=== PATIENT | male | born 1960 | race Caucasian/White ===

== ENCOUNTER → 2017-05-12 11:37 | Outpatient (CLI) | payer OTHER ==
[2015-10-27 09:49] VITALS: BMI 33.7
[~2017-05-12 11:37] MED LIST: BENZTROPINE MESY1 MG PO; CARAFATE1 G PO; ESKALITH CR450 M1 PO; GABAPENTIN100 MG PO; GLUCOPHAGE500 MG PO; HALDOL5 MG PO; HYDROCODONE-APA1 TAB PO; LEVOTHYROXINE50 MCG PO; MODURETIC 5/501 TAB PO; MYSOLINE 50 MG50 MG PO; PROPRANOLOL HCL20 MG PO; PROTONIX40 MG PO; PROZAC20 MG PO; PROZAC40 MG PO; ROBAXIN-750750 MG PO; STIOLTO INH; VENTOLIN HFA18 GM INH
== END | disposition home or self-care (01) ==
LOC: D.RT 11:37
DX: J44.9 Chronic obstructive pulmonary disease, unspecified (principal)

== ENCOUNTER → 2017-07-24 12:32 | Outpatient (CLI) | payer OTHER ==
[2015-10-27 09:49] VITALS: BMI 33.7
[~2017-07-24 12:32] MED LIST changes: +ARICEPT5 MG PO; +BREO ELLIPTA 21 EACH; +IPRAT-ALBUT 0.5-3 ML UPD; +LATUDA40 MG PO; +RITALIN5 MG PO
== END | disposition home or self-care (01) ==
LOC: D.RT 12:32
DX: J44.9 Chronic obstructive pulmonary disease, unspecified (principal)

== ENCOUNTER 2017-08-11 09:04 | Day surgery (SDC) | payer OTHER ==
[~2017-08-11] VITALS: Ht 177.8 cm; Wt 113.6 kg
--- NOTE | ~2017-08-11 | HP ---
PATIENT: MIKE BUCKNER JR MEDICAL RECORD: [id number] ACCOUNT: [id number] LOCATION:[place] : 62 ADMISSION DATE: 08/11/17 HISTORY AND PHYSICAL EXAMINATION CHIEF COMPLAINT: Difficulty swallowing. HISTORY OF PRESENT ILLNESS: The patient has dysphagia at the level of the cricopharyngeus. He is here for EGD with esophageal dilation. HOME MEDICATIONS: Please see the nursing list. ALLERGIES: No known drug allergies. SOCIAL HISTORY: Former smoker. He quit 3 months ago. He wears oxygen at home. He has sleep apnea, he is not on CPAP. PAST MEDICAL AND SURGICAL HISTORY: COPD, hypertension, gastroesophageal reflux, and hypothyroidism. He has got some dementia. PHYSICAL EXAMINATION: GENERAL: The patient does not appear acutely ill. He does appear chronically ill. VITAL SIGNS: Reviewed. EARS: External ears appear normal. EYES: Extraocular movements are intact. NECK: Trachea is midline. CHEST: No intercostal retractions. PULMONARY: Mildly labored. No stridor. BACK: He does have some expiratory wheezes. IMPRESSION: Dysphagia. PLAN: EGD with esophageal dilation. TRANSINT:[id number] Voice Confirmation ID: [id number] DOCUMENT ID: [id number] KAIA JOSHI MD CC: BEBETO HEALY DO [id number] DICTATION DATE: 08/11/17 1116 TEST DEVELOPMENT ENGINEER: 08/11/17 1158 REG [facility] [address] [id number]
--- NOTE | ~2017-08-11 | OP ---
PATIENT NAME: MIKE BUCKNER JR MEDICAL RECORD: [id number] :62 LOCATION:D.OPS ADMISSION DATE: SURGEON: AVERY JOSHI MD DATE OF OPERATION: 08/11/2017 PREOPERATIVE DIAGNOSES: Dysphagia at the level of the cricopharyngeus. POSTOPERATIVE DIAGNOSES: 1. Dysphagia at the level of the cricopharyngeus. 2. Patterson esophagus, short segment. PROCEDURE: 1. Esophagogastroduodenoscopy with antral and distal esophageal biopsies. 2. Esophageal dilation with a through the catheter balloon to 60-Zambian. SURGEON: Avery Joshi MD PREPRESS SPECIALIST: None. BLOOD LOSS: Minimal. ANESTHESIA: IV sedation. COMPLICATIONS: None. The risks, possible complications and alternatives to procedure were explained to the patient. A consent form was signed. ENDOSCOPIC COURSE: The patient was conveyed to the endoscopy suite electively on 08/11/2017. IV sedation was induced by the anesthesia staff. A bite block was inserted. A gastroscope was inserted into the mouth. It was advanced easily into the hypopharynx. The esophagus was easily intubated as were the stomach and duodenum. Upon withdrawal, retroflexed and angulus views were obtained. Antral biopsies were obtained. I then advanced through the catheter balloon down through the gastroscope. I then sequentially dilated the entire length of the esophagus to 60-Zambian. The gastroscope and balloon dilator were then removed. The gastroscope was then reintroduced into the esophagus and advanced into the stomach. Distal esophageal biopsies were obtained in 4 quadrants as the patient has Patterson's endoscopically. The endoscope was then withdrawn under direct vision. The patient was then conveyed back to his room. I will see him in the office in 2-3 weeks. If indeed, he has biopsy-proven Patterson's, then my recommendation will be surveillance upper endoscopy in 1 year and then every 2 years for the rest of his life. TRANSINT:[id number] Voice Confirmation ID: [id number] DOCUMENT ID: [id number] OPERATIVE REPORT [id number] MIKE BUCKNER JR, ROBERT MD at 1612 CC: BEBETO HEALY DO [id number] DICTATION DATE: 08/11/17 1147 FELT HAT POUNCING OPERATOR HAND: 08/11/17 1312 [facility] 08/11/17 [facility] [address] [place] [address]
[~2017-08-11 09:04] MED LIST changes: -ARICEPT5 MG PO; -BREO ELLIPTA 21 EACH; -IPRAT-ALBUT 0.5-3 ML UPD; -LATUDA40 MG PO; -RITALIN5 MG PO
[2017-08-11 09:32] LABS: CALC OSMOLALITY 275 mosm/kg (275-300); CARBON DIOXIDE 32.4 mmol/L (21.0-32.0); CHLORIDE - SERUM 103 mmol/L (98-107); GLUCOSE 115 mg/dL (74-106); POTASSIUM - SERUM 4.3 mmol/L (3.5-5.1); SODIUM 138 mmol/L (136-145); UREA NITROGEN 9 mg/dL (7-18); eGFR NON AFRICAN AMERICAN 82 mL/min (90-120)
[2017-08-11 09:35] LABS: BASOPHILS 0.6 % (0-2); EOSINOPHILS 6.3 % (0-7); HEMATOCRIT 41.5 % (42.0-54.0); HEMOGLOBIN 13.6 g/dL (13.5-17.5); IMMATURE GRANULOCYTES 0.1 % (0-5); LYMPHOCYTES 21.6 % (15-50); MCH 31.1 pg (26.0-34.0); MCHC 32.8 g/dL (31.0-37.0); MCV 94.7 fL (80.0-100.0); MEAN PLATELET VOLUME 10.3 fL (7.4-10.4); MONOCYTES 6.1 % (2-11); NEUTROPHILS 65.3 % (40-80); PLATELET COUNT 226 10x3/uL (130-400); RBC 4.38 10x6/uL (4.20-6.10); RDW 12.6 % (11.5-14.5); WBC 8.1 10x3/uL (4.8-10.8)
[2017-08-11] MEDS ORDERED: IPRAT-ALBUT 0.5-3 ML UPD (09:56)
[2017-08-11] MEDS ORDERED: BREO ELLIPTA 21 EACH (09:56)
[2017-08-11] MEDS ORDERED: RITALIN5 MG PO (09:57)
[2017-08-11] MEDS ORDERED: LATUDA40 MG PO (09:57)
[2017-08-11] MEDS ORDERED: ARICEPT5 MG PO (09:58)
[2017-08-11 10:06] VITALS: BP 128/54; Ht 177.8 cm; Wt 113.6 kg
== END 2017-08-11 12:50 | disposition home or self-care (01) ==
LOC: D.OPS 09:04
PROVIDERS: Anesthesiology
DX: R13.19 Other dysphagia (principal); K22.70 Barrett's esophagus without dysplasia; Z01.812 Encounter for preprocedural laboratory examination

== ENCOUNTER → 2017-09-02 12:40 | Outpatient (CLI) | payer OTHER ==
[2017-08-11 10:06] VITALS: BMI 35.9
[~2017-09-02 12:40] MED LIST changes: +ARICEPT5 MG PO; +BREO ELLIPTA 21 EACH; +IPRAT-ALBUT 0.5-3 ML UPD; +LATUDA40 MG PO; +RITALIN5 MG PO
== END | disposition home or self-care (01) ==
LOC: D.CT 09-01 15:30
DX: R94.2 Abnormal results of pulmonary function studies (principal)

== ENCOUNTER → 2017-09-29 19:35 | Outpatient (CLI) | payer OTHER ==
[2017-08-11 10:06] VITALS: BMI 35.9
== END | disposition home or self-care (01) ==
LOC: D.SLEEP 19:35
DX: G47.33 Obstructive sleep apnea (adult) (pediatric) (principal); Z01.812 Encounter for preprocedural laboratory examination

== ENCOUNTER → 2017-12-01 13:26 | Outpatient (CLI) | payer OTHER ==
[2017-08-11 10:06] VITALS: BMI 35.9
== END | disposition home or self-care (01) ==
LOC: D.CT 13:26
DX: R91.8 Other nonspecific abnormal finding of lung field (principal)

== ENCOUNTER → 2018-03-09 08:44 | Outpatient (CLI) | payer OTHER ==
[~2018-03-09] VITALS: Ht 177.8 cm; Wt 75.3 kg
[2018-03-09 10:54] VITALS: Ht 177.8 cm; Wt 75.3 kg
== END | disposition home or self-care (01) ==
LOC: D.FANS 08:44
DX: E13.42 Other specified diabetes mellitus with diabetic polyneuropathy (principal)

== ENCOUNTER 2018-03-10 14:49 | Observation (INO) | payer OTHER ==
[2018-03-10] VITALS (9 sets, daily range): BP systolic 113–133; BP diastolic 52–633
[~2018-03-10] VITALS: Ht 177.8 cm; Wt 132.3 kg
--- NOTE | ~2018-03-10 | HEMODYNAMI ---
PATIENT:MIKE BUCKNER JR MEDICAL RECORD: [id number] : 62 LOCATION:[address] ADMISSION DATE: 03/10/18 Generatedon:03/11/201810:52 Patient name: MIKE BUCKNER Patient #: [id number] SSN: : 1960 Date of study: 03/11/2018 Page: Of Hemodynamic Procedure Report Patient Data Patient Demographics Procedure consent was obtained First Name: MIKE Gender: Male Last Name: DUDLEY Suffix: Jr Barreto Initial: ANNAMARIA : 1960 Patient #: [id number] Age: 57 year(s) Race: Unknown Additional ID: [id number] Contact details [address]: [address] [place] [address] TRAIL State: [place] City: [place] Zip code: [address] Past Medical History Allergies: No known allergies Admission Admission Data Admission Date: 03/10/2018 Admission Time: 18:44 Room #: 2121 Lab Results Lab Result Date: 03/11/2018 Lab Result Time: 0:00 Biochemistry Name Units Result Min Max BUN mg/dl 1 *-(----)-- 7 18 Creatinine mg/dl 1 --(--*-)-- 0.6 1.3 CBC Name Units Result Min Max Hemoglobin g/dl 14.3 --(*---)-- 13.5 17.5 Procedure Procedure Types Cath Procedure Diagnostic Procedure [facility] ED w/Coronaries Sedation Charges Moderate Sedation up to 15 minutes Procedure Description Procedure Date Procedure Date: 03/11/2018 Procedure Start Time: 10:25 Procedure End Time: 10:49 Procedure Staff Name Function Rafita Flores MD Performing Physician Glendy Lovett RT Monitor Martín Rojas RT Scrub Kamini Tavera RN Nurse Procedure Data Cath Procedure Fluoroscopy Diagnostic fluoroscopy Total fluoroscopy Time: 3.5 time: 3.5 min min Diagnostic fluoroscopy Total fluoroscopy dose: 460 dose: 460 mGy mGy Contrast Material Contrast Material Type Amount (ml) Isovue 300 140 Isovue 300 140 Entry Location Entry Primary Successful Side Size Upsize Upsize Entry Closure Succes sful Closure Location (Fr) 1 (Fr) 2 (Fr) Remarks Device Remarks Femoral Right 5 Fr Exoseal artery Estimated blood loss: 5 ml Diagnostic catheters Device Type Used For End Catheter Placement MULTIPACK JL 4.0 5Fr Procedure catheter MULTIPACK 3DRC 5Fr Procedure catheter DIAGNOSTIC AR MOD 5Fr Procedure Catheter ([id number]) DIAGNOSTIC AR2 MOD 5 Fr Procedure catheter ([id number]) MULTIPACK Pigtail 5 Fr Procedure catheter MULTIPACK JL 4.0 5Fr Procedure catheter Procedure Complications No complications Procedure Medications Medication Administration Route Dosage 0.9% NaCl I.V. 100 ml/hr Oxygen etCO2 Nasal cannula 2 l/min Lidocaine 2% added to field 20 Heparin Flush Bag added to field 2 bags (1000units/500ml NS) Versed I.V. 2 mg Fentanyl I.V. 50 mcg Versed I.V. 2 mg Fentanyl I.V. 50 mcg Versed I.V. 1 mg Hemodynamics Rest HGB: 14.3 (g/dl) Heart Rate: 57 (bpm) Pressure Samples Time Site Value (mmHg) Purpose Heart Use Rate(bpm) 10:37 LV 171/17,37 Snapshot 83 10:37 AO 162/89(120) Pullback 87 10:37 LV 182/5,45 Pullback 87 Gradients Valve Time Site 1 Site 2 Mean SEP/DFP Peak To Heart Use (mmHg) (sec/min) Peak Rate (mmHg) (bpm) Aortic 10:37 LV AO 10 5 20 87 182/5,45 162/89(120) Calculations Valve P-P Mean Valve Index Valve Source Name Gradient Area Flow (cm2) Aortic 20 10 20 10 Snapshots Pre Cath Intra NCS Post Cath Vital Signs Time Heart Resp SPO2 etCO2 NIBP (mmHg) Rhythm Pain Sedation Rate (ipm) (%) (mmHg) Status Level (bpm) 10:10:34 55 12 99 48.1 164/83(141) NSR 0 (11) 10(A) , No pain 10:14:56 61 14 96 33.8 134/80(122) NSR 0 (11) 10(A) , No pain 10:19:51 60 13 98 25.5 147/97(114) NSR 0 (11) 10(A) , No pain 10:24:05 57 14 99 42.8 149/93(107) NSR 0 (11) 10(A) , No pain 10:28:27 63 12 99 21.8 146/86(114) NSR 0 (11) 9(A) , No pain 10:32:47 69 12 99 20.3 161/91(130) NSR 0 (11) 9(A) , No pain 10:38:19 86 13 97 15.8 148/104(127) NSR 0 (11) 10(A) , No pain 10:43:51 80 12 99 48.1 162/90(132) NSR 0 (11) 10(A) , No pain 10:48:17 85 13 98 47.4 158/83(130) NSR 0 (11) 10(A) , No pain Medications Time Medication Route Dose Verified Delivered Reason Notes Eff ectiveness by by 10:14:27 0.9% NaCl I.V. 100 Rafita Kamini used for ml/hr Mark Tavera shuttleless loom weaver 10:14:34 Oxygen etCO2 2 Rafita Kamini used for Nasal l/min Mark Tavera procedure cannula RN 10:14:39 Lidocaine 2% added 20ml Rafita Rafita for local to vial Mark Flores MD anesthetic field 10:14:45 Heparin Flush added 2 Rafita Rafita used for Bag to bags Mark Flores MD procedure (1000units/500ml field NS) 10:18:40 Versed I.V. 2 mg Rafita Kamini for Mark Tavera sedation RN 10:18:48 Fentanyl I.V. 50 Rafita Kamini for mcg Mark Tavera sedation RN 10:25:59 Versed I.V. 2 mg Rafita Kamini for Mark Tavera sedation RN 10:26:07 Fentanyl I.V. 50 Rafita Kamini for mcg Mark Tavera sedation RN 10:42:35 Versed I.V. 1 mg Rafita Kamini for Mark Tavera sedation boilermaking supervisor Log Time Note 9:50:59 Martín Rojas RT(R) sent for patient. Start room use. 9:57:05 Signed procedure consent form obtained from patient. 9:57:07 Time tracking: Regular hours (M-F 7:00 - 5:00) 9:57:12 Plan of Care:Hemodynamics will remain stable., Cardiac rhythm will remain stable., Comfort level will be maintained., Respiratory function will remain adequate., Patient/ family verbilizes understanding of procedure., Procedure tolerated without complication., Recovers from procedure without complications.. 9:57:13 Diagnostic Cath status Elective 10:08:31 Vital chart was started 10:14:27 0.9% NaCl 100 ml/hr I.V. was administered by Kamini Tavera RN; used for procedure; 10:14:34 Oxygen 2 l/min etCO2 Nasal cannula was administered by Kamini Tavera RN; used for procedure; 10:14:39 Lidocaine 2% 20ml vial added to field was administered by Rafita Flores MD; for local anesthetic; 10:14:45 Heparin Flush Bag (1000units/500ml NS) 2 bags added to field was administered by Rafita Flores MD; used for procedure; 10:15:45 Baseline sample Acquired. 10:15:52 Rhythm: sinus bradycardia 10:15:53 Full Disclosure recording started 10:15:54 Pre-procedure instructions explained to patient. 10:15:55 Pre-op teaching completed and patient verbalized understanding. 10:15:56 Family in patients room. 10:15:57 Patient NPO since Midnight. 10:16:02 Patient allergic to No known allergies 10:16:04 Is patient on blood thinner?No 10:16:06 Patient diabetic? No. 10:16:10 Previous problem with sedation/anesthesia? No ? 10:16:11 Snore? Yes 10:16:12 Sleep apnea? Yes 10:16:13 Deviated septum? No 10:16:14 Opens mouth fully? Yes 10:16:14 Sticks out tongue? Yes 10:16:32 Airway obstruction? Yes COPD 10:16:35 Dentures? No ? 10:16:37 Pre procedure: right dorsailis pedis pulse 2+ Normal; easily identifiable; not easily obliterated 10:16:39 Patient pain scale 0/10 ?. 10:16:42 IV patent on arrival in left forearm with 0.9% NaCl at [facility]. 10:17:14 Lab Result : Creatinine 1 mg/dl 10:17:14 Lab Result : BUN 1 mg/dl 10:17:14 Lab Result : Hemoglobin 14.3 g/dl 10:17:24 Lab results completed and on chart. 10:17:26 Right groin area was prepped with chlora-prep and draped in sterile fashion 10:17:27 Alarms reviewed by R. N. 10:17:28 Sharps counted by scrub and verified by R.N. 10:17:30 Use device set Femoral Dx 10:17:32 ACIST Syringe (02067) opened to sterile field. 10:17:32 Bag Decanter (2002S) opened to sterile field. 10:17:33 ACIST Hand Control (19457) opened to sterile field. 10:17:33 ACIST Manifold (41264) opened to sterile field. 10:17:35 Tegaderm 4 x 4 (1626W) opened to sterile field. 10:17:37 Medline Cath Pack ([id number]) opened to sterile field. 10:17:38 DIAGNOSTIC WIRE .035 260cm J wire (365392) opened to sterile field. 10:17:38 DIAGNOSTIC Multipack 5Fr catheter set ([id number]) opened to sterile field. 10:17:39 SHEATH 5FR [place] (INA660) opened to sterile field. 10:17:55 --------ALL STOP TIME OUT------ 10:17:55 Final Timeout: patient, procedure, and site verified with staff and physician. All members of the team are in agreement. 10:17:57 Right groin site verified by team. 10:18:00 Physical assessment completed. ASA score P 2 - A patient with mild systemic disease as per Rafita Flores MD. 10:18:04 Sedation plan: IV Moderate Sedation Medication:Versed, Fentanyl 10:18:40 Versed 2 mg I.V. was administered by Kamini Tavera RN; for sedation; 10:18:48 Fentanyl 50 mcg I.V. was administered by Kamini Tavera RN; for sedation; 10:24:37 Zero performed for pressure channel P1 10:24:48 Zero performed for pressure channel P1 10:25:30 Procedure started. 10:25:54 Local anesthetic to right femoral artery with Lidocaine 2% by Rafita Flores MD.INITIAL ACCESS ONLY 10:25:59 Versed 2 mg I.V. was administered by Kamini Tavera RN; for sedation; 10:26:07 Fentanyl 50 mcg I.V. was administered by Kamini Tavera RN; for sedation; 10:26:10 Zero performed for pressure channel P1 10:26:16 Zero performed for pressure channel P1 10:26:24 Zero performed for pressure channel P1 10:26:32 Zero performed for pressure channel P1 10:26:59 A 5 Fr sheath was inserted into the Right Femoral artery 10:27:02 Zero performed for pressure channel P1 10:27:16 Zero performed for pressure channel P1 10:27:33 A MULTIPACK JL 4.0 5Fr catheter was advanced over the wire and used for Procedure. 10:29:22 LCA angiography performed. 10:29:37 Catheter exchanged over wire. 10:29:53 A MULTIPACK 3DRC 5Fr catheter was advanced over the wire and used for Procedure. 10:32:14 Catheter exchanged over wire. 10:32:58 A DIAGNOSTIC AR MOD 5Fr Catheter ([id number]) was advanced over the wire and used for Procedure. 10:33:56 Catheter exchanged over wire. 10:34:05 UNABLE TO ENGAGE 10:34:28 A DIAGNOSTIC AR2 MOD 5 Fr catheter ([id number]) was advanced over the wire and used for Procedure. 10:35:53 RCA angiography performed. 10:35:57 Catheter exchanged over wire. 10:36:10 A MULTIPACK Pigtail 5 Fr catheter was advanced over the wire and used for Procedure. 10:36:50 LV gram done using CRAWFORD 10:36:52 Injector settings: Ml/sec: 10, Volume: 20, 10:37:12 LV hemodynamics recorded. 10:37:21 EF : 60 % 10:37:42 Catheter exchanged over wire. 10:42:11 A MULTIPACK JL 4.0 5Fr catheter was advanced over the wire and used for Procedure. 10:42:35 Versed 1 mg I.V. was administered by Kamini Tavera RN; for sedation; 10:44:58 LCA angiography performed. 10:45:02 Catheter removed. 10:45:15 EXOSEAL 5Fr (EX500) opened to sterile field. 10:46:29 Sheath removed intact; hemostasis achieved with Exoseal to the Right Femoral artery. 10:46:32 Procedure ended.(Physican Out) 10:47:17 Contrast amount:Isovue 300 140ml. 10:47:34 Sharps counted by scrub and verified by R.N. 10:47:37 Post-op/insertion site Right Femoral artery dressed using a 4 x 4 and Tegaderm. 10:47:41 Post-procedure physical assessment completed. ASA score P 2 - A patient with mild systemic disease as per Rafita Flores MD. 10:47:44 Post procedure rhythm: sinus rhythm 10:47:46 Estimated blood loss: 5 ml 10:47:47 Post procedure instruction explained to patient.Patient verbalizes understanding. 10:47:48 Patient needs reinforcement of post procedure teaching. 10:48:42 Fluoroscopy time 03.50 minutes. 10:48:44 Fluoroscopy dose: 460 mGy 10:48:44 Flurop Dose total: 460 10:48:48 Contrast amount:Isovue 300 140ml. 10:49:18 Procedure type changed to Cath procedure, Diagnostic procedure, LHC, LHC w/Coronaries, Sedation Charges, Moderate Sedation up to 15 minutes 10:49:35 Procedure and supply charges have been captured, reviewed, submitted and are correct. 10:49:37 Procedure Complication : No complications 10:49:39 Vital chart was stopped 10:49:39 See physician's report for complete and final results. 10:49:42 Report given to PCU. 10:49:45 Patient transfered to PCU with Bed. 10:49:47 Procedure ended. 10:49:47 Full Disclosure recording stopped 10:49:50 End room use (Document Last) Device Usage Item Name Manufacture Quantity Catalog Hospital Part Current Minimal L ot# / Number Charge Number Stock Stock Serial# Code ACIST Acist 1 50644 953112 553074 039114 20 Syringe Medical (57043) Systems Inc Bag Microtek 1 758874 14524 138504 5 Decanter Medical Inc. () ACIST Hand Acist 1 95393 357538 341002 694427 5 Control Medical (37685) Systems Inc ACIST Acist 1 84097 127389 538021 929479 5 Manifold Medical (35841) Systems Inc Tegaderm 4 3M 1 1626W 587047 499113 350796 5 x 4 (1626W) Medline Medline 1 [id number] 461116 42179 146146 5 Cath Pack ([id number]) DIAGNOSTIC [place] 1 216813 319032 231433 155221 30 WIRE .035 260cm J wire (293716) DIAGNOSTIC Cardinal 1 JI2668 400903 82581 635483 30 Multipack Health 5Fr catheter set (BH5631) SHEATH 5FR Terumo 1 [id number] 878839 834038 794980 5 [place] (FJA103) MULTIPACK Cardinal 1 641166 5 JL 4.0 5Fr Health catheter MULTIPACK Cardinal 1 717182 5 3DRC 5Fr Health catheter DIAGNOSTIC Cardinal 1 [id number] 664203 172762 001794 15 AR MOD 5Fr Health Catheter ([id number]) DIAGNOSTIC Cardinal 1 [id number] 686321 528512 913157 20 AR2 MOD 5 Health Fr catheter (073487A) MULTIPACK Cardinal 1 379974 5 Pigtail 5 Health Fr catheter EXOSEAL 5Fr Cardinal 1 EX500 724047 245621 874338 10 (EX500) Health Signature Audit [place] Stage Time Signature Unsigned Intra-Procedure 03/11/2018 Glendy Lovett 10:52:22 AM RT(R) Signatures Monitor : Glendy Lovett Signature : RT Date : Time : [place] [id number] [place], [place] [address]
[2018-03-10 15:31] LABS: BASOPHILS 0.4 % (0-2); EOSINOPHILS 2.3 % (0-7); HEMATOCRIT 42.6 % (42.0-54.0); HEMOGLOBIN 14.8 g/dL (13.5-17.5); IMMATURE GRANULOCYTES 0.1 % (0-5); LYMPHOCYTES 20.7 % (15-50); MCH 30.5 pg (26.0-34.0); MCHC 34.7 g/dL (31.0-37.0); MCV 87.7 fL (80.0-100.0); MEAN PLATELET VOLUME 9.9 fL (7.4-10.4); NEUTROPHILS 68.5 % (40-80); PLATELET COUNT 214 10x3/uL (130-400); RBC 4.86 10x6/uL (4.20-6.10); RDW 12.6 % (11.5-14.5); WBC 8.2 10x3/uL (4.8-10.8)
[2018-03-10 15:45] LABS: ALBUMIN 3.8 g/dL (3.4-5.0); ALKALINE PHOSPHATASE 68 U/L (46-116); ALT (SGPT) 29 U/L (10-68); BILIRUBIN - TOTAL 0.53 mg/dL (0.2-1.3); CALCIUM 8.5 mg/dL (8.5-10.1); CARBON DIOXIDE 27.7 mmol/L (21.0-32.0); CHLORIDE - SERUM 93 mmol/L (98-107); CREATININE - SERUM 1.1 mg/dL (0.6-1.3); POTASSIUM - SERUM 3.7 mmol/L (3.5-5.1); PROTEIN - SERUM 7.3 g/dL (6.4-8.2); SODIUM 130 mmol/L (136-145); UREA NITROGEN 9 mg/dL (7-18); eGFR NON AFRICAN AMERICAN 73 mL/min (90-120)
[2018-03-10 15:57] LABS: CKMB 1.5 U/L (0.0-3.6); CREATINE KINASE 200 UL (21-232)
[2018-03-10 16:01] LABS: CALC OSMOLALITY 263 mosm/kg (275-300); GLUCOSE 175 mg/dL (74-106); TROPONIN-I < 0.017 ng/mL (0.000-0.060)
--- NOTE | 2018-03-10 16:20 | NUR ---
PT PAIN 7/10 PRIOR TO FIRST NITRO, DECREASED TO 6/10 AFTER FIRST NITRO. PAIN REMAINED 6/10 AFTER SECOND NITRO. TREATING PROVIDER NOTIFIED AND NURSE RECIEVED ORDER FOR IV MORPHINE.
--- NOTE | 2018-03-10 18:00 | NUR ---
SITTING UPRIGHT. RESP EVEN AND UNLABORED. CALL LIGHT AND FAMILY MEMBER AT THE BEDSIDE. DENIES ANY NEEDS. WILL CONT TO MONITOR.
[2018-03-10 18:25] LABS: PRO BNP 6 pg/mL (0-125); TROPONIN-I < 0.017 ng/mL (0.000-0.060)
--- NOTE | 2018-03-10 19:09 | NUR ---
HAND OFF REPORT GIVEN TO LUCERO.
[2018-03-10 19:22] LABS: CKMB 1.5 U/L (0.0-3.6); CREATINE KINASE 235 UL (21-232)
--- NOTE | 2018-03-10 20:34 | NUR ---
PT REQUESTED SOME ICE TEA. SPRITE GIVEN. PT SATISFIED. REMINDED PT HE WOULD BE NO AFTER MN. PT VERBALIZED UNDERSTANDINGS.
[2018-03-11] VITALS: BP 117/72
[2018-03-11 00:43] VITALS: BP 117/77; Ht 177.8 cm; Wt 132.3 kg
--- NOTE | 2018-03-11 02:00 | NUR ---
PATIENT IS ALERT AND ORIENTED. RESTING IN BED WATCHING TV WITH AT BEDSIDE. RESPIRATIONS ARE EVEN AND UNLABORED. NO S/S OF DISTRESS/ NO C/O PAIN. CALL LIGHT WITHIN REACH. WILL CPOC.
[2018-03-11 04:46] LABS: BASOPHILS 0.4 % (0-2); EOSINOPHILS 4.6 % (0-7); HEMATOCRIT 42.6 % (42.0-54.0); HEMOGLOBIN 14.3 g/dL (13.5-17.5); LYMPHOCYTES 24.4 % (15-50); MCH 29.8 pg (26.0-34.0); MCHC 33.6 g/dL (31.0-37.0); MCV 88.8 fL (80.0-100.0); MONOCYTES 8.1 % (2-11); NEUTROPHILS 62.5 % (40-80); PLATELET COUNT 225 10x3/uL (130-400); RDW 12.7 % (11.5-14.5); WBC 6.8 10x3/uL (4.8-10.8)
[2018-03-11 04:55] VITALS: BP 145/77
[2018-03-11 05:30] LABS: ALBUMIN 3.5 g/dL (3.4-5.0); ALKALINE PHOSPHATASE 66 U/L (46-116); ALT (SGPT) 30 U/L (10-68); BILIRUBIN - TOTAL 0.64 mg/dL (0.2-1.3); CALCIUM 8.6 mg/dL (8.5-10.1); CARBON DIOXIDE 32.6 mmol/L (21.0-32.0); CHLORIDE - SERUM 100 mmol/L (98-107); CKMB 1.8 U/L (0.0-3.6); POTASSIUM - SERUM 3.8 mmol/L (3.5-5.1); PROTEIN - SERUM 6.8 g/dL (6.4-8.2); SODIUM 139 mmol/L (136-145); TROPONIN-I < 0.017 ng/mL (0.000-0.060); UREA NITROGEN 10 mg/dL (7-18); eGFR NON AFRICAN AMERICAN 82 mL/min (90-120)
[2018-03-11 05:31] LABS: CALC OSMOLALITY 277 mosm/kg (275-300); GLUCOSE 116 mg/dL (74-106)
[2018-03-11 05:32] LABS: CREATINE KINASE 334 UL (21-232)
--- NOTE | 2018-03-11 07:35 | NUR ---
ASSESSMENT DONE. DENIES NEEDS. AT SIDE.
[2018-03-11 08:12] VITALS: BP 142/59
--- NOTE | 2018-03-11 09:59 | NUR ---
TO CLASS A REGIONAL DRIVERS PER BED
--- NOTE | 2018-03-11 10:14 | NUR ---
IN FISH TECHNOLOGIST AT THIS TIME. WILL CONT. PLAN OF CARE.
--- NOTE | 2018-03-11 11:48 | NUR ---
[address], AREA MARKED AND NOT ENLARGING. PEDAL PULSES PALPABLE, HOB IS FLAT, PT DENIES ANY C/O CHEST PAIN. VSS, AT BEDSIDE.
--- NOTE | 2018-03-11 11:49 | NUR ---
AT BEDSIDE, PT DENIES ANY C/O CHEST PAIN. FEMSTOP INTACT WITH NO INCREASE IN HEMATOMA. PEDAL PULSES PALPABLE. HOB IS FLAT, NSR RATE 62, BP IS 116/73.
--- NOTE | 2018-03-11 12:08 | NUR ---
PO FLUIDS SERVED. FEMSTOP INTACT WITH NO INCREASE IN HEMATOMA. PEDAL PULSES PALPABLE. PT DENIES ANY C/O CHEST PAIN.
--- NOTE | 2018-03-11 12:18 | NUR ---
FEMSTOP TO R/GROIN REMAINS IN PLACE WITH NO ADDITIONAL GROWTH TO HEMATOMA SITE IS MARKED FOR OBSERVATION SOFT TO PALPATE
--- NOTE | 2018-03-11 12:32 | NUR ---
PRESSURE ON FEMSTOP LOWERED FROM 140 TO 100 SITE OBSERVED WITH NO BLEEDING OR GROWTH TO HEMATOMA.
--- NOTE | 2018-03-11 12:42 | NUR ---
PRESSURE TO FEMSTOP LOWERED TO 75 WITH NO BLEEDING NOTED. PATIENT VERBALIZED RELIEF TO SITE WILL MONITOR
--- NOTE | 2018-03-11 12:57 | NUR ---
FEMSTOP PRESSURE LOWERED TO 50, AREA OF MARKED HEMATOMA IS SOFT. PEDAL PULSES PALPABLE. PT EATING SANDWICH, BED TILTED. NSR, DENIES ANY C/O CHEST PAIN. BP IS 106/61.
--- NOTE | 2018-03-11 13:30 | NUR ---
1315 FEMSTOP PRESSURE COMPLETELY WEANED. DRESSING CDI, AREA IS SOFT. PEDAL PULSES PALPABLE. PT WOLF SANDWICH WITH NO C/O. VSS, NSR. HOB IS FLAT.
--- NOTE | 2018-03-11 13:48 | NUR ---
HOB ELEVATED 30 DEGREES, DRESSING CDI TO RIGHT GROIN, AREA IS SOFT. PEDAL PULSES PALPABLE. VSS, PT HAS WOLF SANDWICH AND DENIES ANY C/O. AT BEDSIDE.
--- NOTE | 2018-03-11 14:33 | NUR ---
1405 HOB FULLY ELEVATED, DRESSING REMAINS CDI TO RIGHT GROIN, AREA IS SOFT WITH NO HEMATOMA NOTED. PEDAL PULSES PALPABLE. VSS. PT IS ALERT AND DENIES ANY C/O. 1420 IV DC'D WITH CATH INTACT. PT HAS VOIDED 600 CC CLEAR YELLOW URINE TO URINAL. DC INSTRUCTIONS REVIEWED WITH PT AND WHO VERBALIZE UNDERSTANDING. 1430 NURSE HAS ASSISTED PT WITH DRESSING FOR DC TO HOME. DRESSING REMAINS CDI TO RIGHT GROIN, AREA REMAINS SOFT WITH NO HEMATOMA NOTED. PT ESCORTED TO PRIVATE AUTO VIA WC BY NURSE WITH DRIVING HIM HOME.
== END 2018-03-11 14:30 | disposition home or self-care (01) ==
LOC: D.ER 14:49 → D.M2 18:44 → D.CLR 18:44 → D.EDHOLD 18:44 → OBSVTIME 18:44 → D.M2 21:27 → D.CLR 03-11 11:38
PROVIDERS: Family Medicine; ADMIT Internal Medicine Cardiovascular Disease
DX: I25.110 Atherosclerotic heart disease of native coronary artery with unstable angina pectoris (principal); I10 Essential (primary) hypertension; J44.9 Chronic obstructive pulmonary disease, unspecified; E11.9 Type 2 diabetes mellitus without complications; F32.9 Major depressive disorder, single episode, unspecified; F41.9 Anxiety disorder, unspecified; F03.90 Unspecified dementia, unspecified severity, without behavioral disturbance, psychotic disturbance, mood disturbance, and anxiety; K21.9 Gastro-esophageal reflux disease without esophagitis

== ENCOUNTER → 2018-03-30 08:35 | Outpatient (CLI) | payer OTHER ==
[2018-03-11 00:43] VITALS: BMI 41.8
== END | disposition home or self-care (01) ==
LOC: D.HCCARDIO 08:35
DX: R07.9 Chest pain, unspecified (principal)

== ENCOUNTER → 2018-08-03 10:19 | Outpatient (CLI) | payer OTHER ==
[2018-03-11 00:43] VITALS: BMI 41.8
[~2018-08-03 10:19] MED LIST changes: +CITALOPRAM PO; +MIDAMOR5 MG PO; +TRAMADOL PO; +TRAZODONE PO; +ZIPRASIDONE PO; +[UNRECOGNIZED DRUG - CODE]
== END | disposition home or self-care (01) ==
LOC: D.HCCARDIO 10:19
PROVIDERS: ATTEND Internal Medicine Cardiovascular Disease
DX: I25.10 Atherosclerotic heart disease of native coronary artery without angina pectoris (principal)

== ENCOUNTER 2018-08-10 08:29 | Day surgery (SDC) | payer OTHER ==
[~2018-08-10 08:29] MED LIST changes: -CITALOPRAM PO; -MIDAMOR5 MG PO; -TRAMADOL PO; -TRAZODONE PO; -ZIPRASIDONE PO; -[UNRECOGNIZED DRUG - CODE]
[2018-08-10 09:02] LABS: ANION GAP 8.8 mmol/L (8-16); CALCIUM 8.9 mg/dL (8.5-10.1); CARBON DIOXIDE 29.6 mmol/L (21.0-32.0); CREATININE - SERUM 1.1 mg/dL (0.6-1.3); POTASSIUM - SERUM 4.4 mmol/L (3.5-5.1)
[2018-08-10 09:14] LABS: HEMATOCRIT 42.2 % (42.0-54.0); HEMOGLOBIN 14.6 g/dL (13.5-17.5); MCH 29.9 pg (26.0-34.0); MCHC 34.6 g/dL (31.0-37.0); MCV 86.5 fL (80.0-100.0); MEAN PLATELET VOLUME 9.2 fL (7.4-10.4); RBC 4.88 10x6/uL (4.20-6.10); RDW 12.8 % (11.5-14.5); WBC 6.3 10x3/uL (4.8-10.8)
[2018-08-10] MEDS ORDERED: MIDAMOR5 MG PO (09:28)
[2018-08-10] MEDS ORDERED: TRAMADOL PO (09:31)
[2018-08-10] MEDS ORDERED: [UNRECOGNIZED DRUG - CODE] (09:33)
[2018-08-10] MEDS ORDERED: CITALOPRAM PO (09:34)
[2018-08-10] MEDS ORDERED: ZIPRASIDONE PO (09:34)
[2018-08-10] MEDS ORDERED: TRAZODONE PO (09:35)
[2018-08-10 10:32] VITALS: BP 125/60; BMI 45.2
--- NOTE | 2018-08-10 11:05 | NUR ---
PT'S NURSE PRESENT IN ROOM UPON ON ARRIVAL FOR SUICIDE ASSESSMENT. DR. DAVIS NOTIFIED AND REVIEWED PT'S BEHAVIOR AND ASSESSMENT RESULTS. PT IS A LOW RISK PER DR. DAVIS. DR. DAVIS STATED TO GIVE RESOURCES TO PT AT TIME OF DISCHARGE. NO FURTHER ORDERS AT THIS TIME. RESOURCES REVIEWED WITH PT AND HE VERBALIZED UNDERSTANDING.
--- NOTE | 2018-08-10 13:21 | NUR ---
DILATE ESOPHAGUS 18-20 YAZAN BALLOON TIMES THREE MINUTES TO 60 MAURITIAN
--- NOTE | 2018-08-10 14:39 | NUR ---
1048 NURSING YOKER MACHINE OPERATOR NOTIFIED OF + SUICIDE SCREENING. BEHAVIORAL NURSE HERE SUICIDE SCREENING DONE WHILE SAFETY MEASURES IMPLEMENTED. ZEB Masterson STATES PATIENT IS OKAY. Stephan TUCKER R.N.
--- NOTE | 2018-08-10 15:08 | NUR ---
1305 RESPIRATORY THERAPIST HERE TO ADMINISTER ALBUTEROL INHALATION TREATMENT TO PT.
--- NOTE | 2018-08-10 15:47 | NUR ---
1516 IV DC'D. CATHETER INTACT. NO BLEEDING AT SITE. BANDAID APPLIED.
--- NOTE | 2018-08-13 17:03 | HP ---
PATIENT: MIKE BUCKNER JR MEDICAL RECORD: [id number] ACCOUNT: [id number] LOCATION:[place] : 62 ADMISSION DATE: 08/10/18 PCP: BEBETO HEALY DO HISTORY AND PHYSICAL EXAMINATION CHIEF COMPLAINT: Difficulty swallowing. HISTORY OF PRESENT ILLNESS: The patient has recurrent dysphagia at the level of the cricopharyngeus. He also has a history of Patterson's, which was noted endoscopically and confirmed on pathology. It has been about a year since his last endoscopy. We will plan for an EGD with esophageal dilation and surveillance biopsies in the area of Patterson's. HOME MEDICATIONS: Please see the nursing list. ALLERGIES: No known drug allergies. SOCIAL HISTORY: He is a smoker. PAST MEDICAL AND SURGICAL HISTORY: Sleep apnea, he is on CPAP, he wears O2 at night. COPD, coronary artery disease, hypertension, depression, hypothyroidism, thyroid hormone replacement therapy, history of appendectomy, history of right total knee arthroplasty, history of neck surgery, history of cholecystectomy, history of neuropathy. PHYSICAL EXAMINATION: GENERAL: The patient does not appear acutely ill. VITAL SIGNS: Reviewed. EARS: External ears appear normal. EYES: Extraocular movements are intact. NECK: Trachea is midline. CHEST: No intercostal retractions. PULMONARY: Mildly labored. IMPRESSION: 1. Patterson esophagus in need of surveillance upper endoscopy with biopsies. 2. Recurrent dysphagia at the level of the cricopharyngeus, which was improved last year after esophageal dilation. PLAN: EGD with esophageal dilation. A surveillance upper endoscopy with biopsies. TRANSINT:[id number] Voice Confirmation ID: [id number] DOCUMENT ID: [id number] KAIA JOSHI MD at 1703 CC: LAZARUS MACDONALD MD, BEBETO HEALY DO and LETTY QUESADA M.D.[id number] DICTATION DATE: 08/10/18 1305 BELT BRANDER: 08/10/18 1412 [facility] 08/10/18 [place] [id number]
--- NOTE | 2018-08-13 17:12 | OP ---
PATIENT NAME: MIKE BUCKNER JR MEDICAL RECORD: [id number] :62 LOCATION:D.OPS ADMISSION DATE: SURGEON: AVERY JOSHI MD DATE OF OPERATION: 08/10/2018 PREOPERATIVE DIAGNOSES: 1. Recurrent dysphagia. 2. Sleep apnea. 3. Patterson's esophagus. POSTOPERATIVE DIAGNOSES: 1. Recurrent dysphagia. 2. Sleep apnea. 3. Patterson's esophagus. 4. Large hiatal hernia. PROCEDURES: 1. Esophagogastroduodenoscopy with antral and distal esophageal biopsies for surveillance of Patterson's esophagus. 2. Esophageal dilation with a dsrdast-rxk-hwuohhre balloon to 60-Divehi. SURGEON: Avery Joshi MD MANAGER ORGANIZATIONAL: None. BLOOD LOSS: Minimal. ANESTHESIA: IV sedation. COMPLICATIONS: None. The reason for the anesthesia staff being present during the procedure includes the probability for airway manipulation, which was necessary during the procedure. ENDOSCOPIC COURSE: The patient was conveyed to the endoscopy suite electively on 08/10/2018. IV sedation was induced by the anesthesia staff. A bite block was inserted. A gastroscope was inserted into the mouth. It was advanced easily into the hypopharynx. The esophagus was easily intubated as were the stomach and duodenum. Upon withdrawal, retroflexed and angulus views were obtained. Antral biopsies were obtained. I withdrew into the distal esophagus. I advanced a yohpiea-srr-mmyjsisc balloon. I sequentially dilated the entire length of the esophagus to 60-Divehi. The gastroscope and balloon dilator were then removed. The balloon dilator was removed and the gastroscope was reinserted down the patient's esophagus and into the stomach. Distal esophageal biopsies were obtained in the area of Patterson's esophagus. The endoscope was then withdrawn under direct vision. The patient was then conveyed back to his room. I will see him in the office in 2-3 weeks. I will plan for his next surveillance upper endoscopy to take place in 2 years. TRANSINT:[id number] Voice Confirmation ID: [id number] DOCUMENT ID: [id number] OPERATIVE REPORT [id number] MIKE BUCKNER JR AVERY JOSHI MD at 1712 CC: [id number] DICTATION DATE: 08/10/18 1353 INSTRUMENT ROOM TECHNICIAN: 08/10/18 1522 [facility] 08/10/18 [facility] [address] [place] [address]
== END 2018-08-10 15:30 | disposition home or self-care (01) ==
LOC: D.OPS 08:29
PROVIDERS: Anesthesiology; ATTEND Surgery
DX: R13.10 Dysphagia, unspecified (principal); K22.70 Barrett's esophagus without dysplasia; K44.9 Diaphragmatic hernia without obstruction or gangrene; G47.30 Sleep apnea, unspecified; Z01.812 Encounter for preprocedural laboratory examination

== ENCOUNTER → 2018-09-07 08:46 | Outpatient (CLI) | payer OTHER ==
[2018-08-10 10:32] VITALS: BMI 45.2
[~2018-09-07 08:46] MED LIST changes: +CITALOPRAM PO; +MIDAMOR5 MG PO; +TRAMADOL PO; +TRAZODONE PO; +ZIPRASIDONE PO; +[UNRECOGNIZED DRUG - CODE]
== END | disposition home or self-care (01) ==
LOC: D.CT 08:46
PROVIDERS: ATTEND Internal Medicine Pulmonary Disease
DX: R91.8 Other nonspecific abnormal finding of lung field (principal)

== ENCOUNTER → 2018-09-09 12:30 | Outpatient (CLI) | payer OTHER ==
[2018-08-10 10:32] VITALS: BMI 45.2
== END | disposition home or self-care (01) ==
LOC: D.CT 12:30
PROVIDERS: ATTEND Internal Medicine Pulmonary Disease
DX: R91.8 Other nonspecific abnormal finding of lung field (principal)

== ENCOUNTER → 2018-10-13 15:15 | Outpatient (CLI) | payer OTHER | END | disposition home or self-care (01) | LOC: D.RT 15:15 | PROVIDERS: ATTEND Internal Medicine Pulmonary Disease | DX: J44.9 Chronic obstructive pulmonary disease, unspecified (principal) ==

== ENCOUNTER → 2018-10-19 16:33 | Outpatient (CLI) | payer OTHER | END | disposition home or self-care (01) | LOC: D.LABREF 16:33 | PROVIDERS: ATTEND Internal Medicine Pulmonary Disease | DX: R91.8 Other nonspecific abnormal finding of lung field (principal) ==

== ENCOUNTER → 2018-10-19 16:42 | Outpatient (CLI) | payer OTHER ==
[2018-10-22 16:08] LABS: ANCA - ANTIMYELOPEROXIDASE <9.0 U/mL (0.0-9.0); ANCA - ANTIPROTEINASE 3 <3.5 U/mL (0.0-3.5); ANCA - ATYPICAL <1:20 titer (Neg:<1:20); ANCA - CYTOPLASMIC <1:20 titer (Neg:<1:20); ANCA - PERINUCLEAR <1:20 titer (Neg:<1:20)
== END | disposition home or self-care (01) ==
LOC: D.LABREF 16:42
PROVIDERS: ATTEND Internal Medicine Pulmonary Disease
DX: R91.8 Other nonspecific abnormal finding of lung field (principal)

== ENCOUNTER → 2019-01-18 11:01 | Outpatient (CLI) | payer OTHER | END | disposition home or self-care (01) | LOC: D.CT 11:01 | PROVIDERS: ATTEND Internal Medicine Pulmonary Disease | DX: R91.8 Other nonspecific abnormal finding of lung field (principal) ==

== ENCOUNTER → 2019-09-19 16:09 | Outpatient (CLI) | payer OTHER | END | disposition home or self-care (01) | LOC: D.CT 05-20 09:30 | PROVIDERS: ATTEND Internal Medicine Pulmonary Disease | DX: R91.8 Other nonspecific abnormal finding of lung field (principal) ==

== ENCOUNTER → 2019-09-27 12:47 | Outpatient (CLI) | payer OTHER | END | disposition home or self-care (01) | LOC: D.HCCECHO 12:47 | PROVIDERS: ATTEND Internal Medicine Cardiovascular Disease | DX: I20.9 Angina pectoris, unspecified (principal) ==